=== PATIENT | female | born 1950 | race Caucasian/White ===

== ENCOUNTER 2021-06-16 09:49 | Inpatient (IN) | payer BC, MEDICARE ==
[2021-06-16] MEDS ORDERED: CEFAZOLIN 2 GM in Sodium Chloride 0.9% 100 ML IVPB SCH (11:45)
[2021-06-16 11:47] LABS: #Lymphocytes 0.7 thou/uL (1.20-3.40); #Monocytes 0.4 thou/uL (0.11-0.59); #Neutrophils 2.3 thou/uL (1.40-6.50); %Basophils 0.6 % (0.0-1.0); %Eosinophils 1.1 % (0.0-10.0); %Lymphocytes 20.4 % (21.0-51.0); %Monocytes 12.6 % (0.0-10.0); %Neutrophils 65.3 % (42.0-75.0); Hemoglobin 11.6 g/dL (12.0-16.0); Mean Corpuscular HGB CONC 33.3 g/dL (32.0-36.0); Mean Corpuscular Hemoglobin 33.5 pg (27.0-31.0); Mean Platelet Volume 7.8 fL (7.4-10.4); Platelet Count 83 thou/uL (130-400); RBC Distribution Width 13.6 % (11.5-14.5); Red Blood Cell (RBC) Count 3.46 mill/uL (4.20-5.40); White Blood Cell (WBC) Count 3.5 thou/uL (4.8-10.8)
[2021-06-16 11:48] LABS: ALT (SGPT) 52 U/L (8-55); AST (SGOT) 60 U/L (5-34); Albumin 3.4 g/dL (3.4-4.8); Alkaline Phosphatase 113 U/L (40-110); Anion Gap 16 mmol/L (10-20); BUN (Urea Nitrogen) 18 mg/dL (9.8-20.1); Bilirubin, Total 1.7 mg/dL (0.2-1.2); Calc. Creatinine Clearance 0 mL/min (70-130); Calcium 8.9 mg/dL (7.8-10.44); Carbon Dioxide 25 mmol/L (23-31); Chloride 97 mmol/L (98-107); Glucose 164 mg/dL (83-110); Magnesium 1.9 mg/dL (1.6-2.6); Potassium 3.9 mmol/L (3.5-5.1); Protein, Total 6.4 g/dL (5.8-8.1); Sodium 134 mmol/L (136-145)
[2021-06-16 11:57] LABS: INR-International Normal Ratio 1.7; PTT 36.7 sec (22.9-36.1); Prothrombin Time 20.6 sec (12.0-14.7)
[2021-06-16 12:19] LABS: CKMB 4.2 ng/mL (0-6.6)
[2021-06-16 14:10] LABS: Bilirubin Negative (Negative); Blood, Urine Large (Negative); Glucose, Urine (Dipstick) Negative (Negative); Ketone, Urine Negative (Negative); Leukocyte Negative (Negative); Nitrite Negative (Negative); Protein, Urine (Dipstick) Negative (Neg-Trace); Urobilinogen 0.2 mg/dL (Less than 2)
[2021-06-16 14:20] LABS: Clarity Cloudy (Clear)
[2021-06-16 14:22] LABS: Bacteria/HPF Rare-Few HPF (None Seen)
[2021-06-16] MEDS ORDERED: Dextrose 50% Abboject 50 ML SYRINGE SLOW IVP PRN (16:14)
[2021-06-16] MEDS ORDERED: Dextrose 5% in Water 1,000 ML IV PRN (16:14)
[2021-06-16] MEDS ORDERED: HumaLOG 300 UNITS/3 ML VIAL SC PRN ×2 (16:14)
[2021-06-16] MEDS ORDERED: Ondansetron ODT 4 MG TAB PO PRN (16:16)
[2021-06-16] MEDS ORDERED: Acetaminophen 650 MG Suppository PR PRN (16:16)
[2021-06-16] MEDS ORDERED: Acetaminophen 325 MG TAB PO PRN (16:16)
[2021-06-16] MEDS ORDERED: Ondansetron PF 4 MG/2 ML Vial IVP PRN (16:16)
[2021-06-16 19:41] LABS: Troponin I 0.052 ng/mL (< 0.028)
[2021-06-17] MEDS ORDERED: Methocarbamol 500 MG TAB PO SCH (01:30)
[2021-06-17 08:40] LABS: #Lymphocytes 0.7 thou/uL (1.20-3.40); #Monocytes 0.4 thou/uL (0.11-0.59); #Neutrophils 2.5 thou/uL (1.40-6.50); %Basophils 0.7 % (0.0-1.0); %Eosinophils 1.3 % (0.0-10.0); %Monocytes 11.7 % (0.0-10.0); %Neutrophils 66.4 % (42.0-75.0); Hemoglobin 9.9 g/dL (12.0-16.0); Mean Corpuscular HGB CONC 33.4 g/dL (32.0-36.0); Mean Corpuscular Hemoglobin 33.8 pg (27.0-31.0); Mean Platelet Volume 8.2 fL (7.4-10.4); Platelet Count 61 thou/uL (130-400); RBC Distribution Width 13.5 % (11.5-14.5); Red Blood Cell (RBC) Count 2.93 mill/uL (4.20-5.40); White Blood Cell (WBC) Count 3.7 thou/uL (4.8-10.8)
[2021-06-17 08:49] LABS: Anion Gap 13 mmol/L (10-20); BUN (Urea Nitrogen) 15 mg/dL (9.8-20.1); Calc. Creatinine Clearance 0 mL/min (70-130); Calcium 8.5 mg/dL (7.8-10.44); Carbon Dioxide 27 mmol/L (23-31); Chloride 101 mmol/L (98-107); Glucose 75 mg/dL (83-110); Potassium 3.7 mmol/L (3.5-5.1); Sodium 137 mmol/L (136-145)
[2021-06-17] MEDS ORDERED: Non-Formulary Item 1 EACH (Magnesium [Magnesium] 200 MG Tablet) PO SCH (12:00)
[2021-06-17] MEDS ORDERED: Amiodarone 200 MG TAB PO SCH (12:00)
[2021-06-17] MEDS ORDERED: Apixaban 5 MG TAB PO SCH (12:30)
[2021-06-17] MEDS: Cephalexin 250 MG CAP PO SCH ×3 (15:51→23:21)
[2021-06-17 16:21] LABS: SARS-CoV-2 PCR by NAA Not Detected (NotDetected)
[2021-06-17] MEDS ORDERED: Non-Formulary Item 1 EACH (Melatonin [Melatonin] 5 MG Tablet) PO SCH (21:00)
[2021-06-17] MEDS: Apixaban 5 MG TAB PO SCH (22:16)
[2021-06-17] MEDS: Folic Acid 1 MG TAB PO SCH (22:17)
[2021-06-17] MEDS: Oxybutynin 5 MG TAB PO SCH (22:17)
[2021-06-17] MEDS: Donepezil HCl 5 MG TAB PO SCH (22:17)
[2021-06-17] MEDS: Atorvastatin Calcium 20 MG TAB PO SCH (22:18)
[2021-06-18 04:43] LABS: Thyroid Stimulating Hormone 0.7563 uIU/mL (0.35-4.94)
[2021-06-18 04:59] LABS: Vitamin B12 Greater than 2000 pg/mL (211-911)
[2021-06-18] MEDS: Cephalexin 250 MG CAP PO SCH ×3 (06:46→17:58)
[2021-06-18] MEDS: Oxybutynin 5 MG TAB PO SCH ×2 (10:59→20:55)
[2021-06-18] MEDS: Nebivolol HCl 5 MG TAB PO SCH (11:00)
[2021-06-18] MEDS: Apixaban 5 MG TAB PO SCH ×2 (11:00→20:55)
[2021-06-18] MEDS: Cyanocobalamin (Vitamin B-12) 1,000 MCG TAB PO SCH (11:01)
[2021-06-18] MEDS: Amiodarone 200 MG TAB PO SCH (11:01)
[2021-06-18] MEDS: Donepezil HCl 5 MG TAB PO SCH (11:01)
[2021-06-18] MEDS: Thiamine 100 MG TAB PO SCH (11:01)
[2021-06-18] MEDS: Folic Acid 1 MG TAB PO SCH ×2 (11:01→20:55)
[2021-06-18] MEDS: Cholecalciferol 1,000 UNITS (25 MCG) TAB PO SCH (11:01)
[2021-06-18] MEDS: Alogliptin 25 MG TAB PO SCH (12:02)
[2021-06-18] MEDS: traMADol HCl 50 MG TAB PO PRN (19:07)
[2021-06-18] MEDS: Atorvastatin Calcium 20 MG TAB PO SCH (20:55)
[2021-06-19] MEDS: Cephalexin 250 MG CAP PO SCH ×4 (00:01→17:39)
[2021-06-19] MEDS: Amiodarone 200 MG TAB PO SCH (11:11)
[2021-06-19] MEDS: Folic Acid 1 MG TAB PO SCH ×2 (11:11→20:31)
[2021-06-19] MEDS: Cyanocobalamin (Vitamin B-12) 1,000 MCG TAB PO SCH (11:11)
[2021-06-19] MEDS: Apixaban 5 MG TAB PO SCH ×2 (11:11→20:31)
[2021-06-19] MEDS: Nebivolol HCl 5 MG TAB PO SCH (11:11)
[2021-06-19] MEDS: Oxybutynin 5 MG TAB PO SCH ×2 (11:12→20:31)
[2021-06-19] MEDS: Thiamine 100 MG TAB PO SCH (11:12)
[2021-06-19] MEDS: Cholecalciferol 1,000 UNITS (25 MCG) TAB PO SCH (11:12)
[2021-06-19] MEDS: Alogliptin 25 MG TAB PO SCH (11:12)
[2021-06-19] MEDS: Atorvastatin Calcium 20 MG TAB PO SCH (20:31)
[2021-06-19] MEDS: Donepezil HCl 5 MG TAB PO SCH (20:31)
[2021-06-19] MEDS: Senokot S 8.6-50 MG TAB PO PRN (20:32)
[2021-06-20] MEDS: Cephalexin 250 MG CAP PO SCH ×5 (00:24→23:10)
[2021-06-20] MEDS: Cholecalciferol 1,000 UNITS (25 MCG) TAB PO SCH (09:25)
[2021-06-20] MEDS: Folic Acid 1 MG TAB PO SCH ×2 (09:25→21:22)
[2021-06-20] MEDS: Cyanocobalamin (Vitamin B-12) 1,000 MCG TAB PO SCH (09:25)
[2021-06-20] MEDS: Nebivolol HCl 5 MG TAB PO SCH (09:25)
[2021-06-20] MEDS: Thiamine 100 MG TAB PO SCH (09:25)
[2021-06-20] MEDS: Amiodarone 200 MG TAB PO SCH (09:25)
[2021-06-20] MEDS: Alogliptin 25 MG TAB PO SCH (09:25)
[2021-06-20] MEDS: Apixaban 5 MG TAB PO SCH ×2 (09:28→21:22)
[2021-06-20] MEDS ORDERED: Polyethylene Glycol 3350 17 GM Packet PO SCH (14:45)
[2021-06-20] MEDS: Oxybutynin 5 MG TAB PO SCH ×2 (14:57→21:22)
[2021-06-20] MEDS: Atorvastatin Calcium 20 MG TAB PO SCH (21:21)
[2021-06-20] MEDS: Donepezil HCl 5 MG TAB PO SCH (21:22)
[2021-06-20] MEDS: Senokot S 8.6-50 MG TAB PO PRN (21:45)
[2021-06-21] MEDS: Cephalexin 250 MG CAP PO SCH ×4 (05:38→23:48)
[2021-06-21] MEDS ORDERED: Bisacodyl 5 MG TAB PO PRN (08:19)
[2021-06-21] MEDS ORDERED: Fleet Enema 133 ML BOT PR SCH (08:30)
[2021-06-21] MEDS: Alogliptin 25 MG TAB PO SCH (09:15)
[2021-06-21] MEDS: Apixaban 5 MG TAB PO SCH ×2 (09:16→20:50)
[2021-06-21] MEDS: Nebivolol HCl 5 MG TAB PO SCH (09:16)
[2021-06-21] MEDS: Amiodarone 200 MG TAB PO SCH (09:16)
[2021-06-21] MEDS: Thiamine 100 MG TAB PO SCH (09:16)
[2021-06-21] MEDS: Oxybutynin 5 MG TAB PO SCH ×2 (09:16→20:51)
[2021-06-21] MEDS: Cholecalciferol 1,000 UNITS (25 MCG) TAB PO SCH (09:16)
[2021-06-21] MEDS: Folic Acid 1 MG TAB PO SCH ×2 (09:16→20:50)
[2021-06-21] MEDS: Cyanocobalamin (Vitamin B-12) 1,000 MCG TAB PO SCH (09:17)
[2021-06-21] MEDS: traMADol HCl 50 MG TAB PO PRN (15:30)
[2021-06-21] MEDS: Atorvastatin Calcium 20 MG TAB PO SCH (20:51)
[2021-06-21] MEDS: Donepezil HCl 5 MG TAB PO SCH (20:51)
[2021-06-22] MEDS: Cephalexin 250 MG CAP PO SCH ×4 (05:29→23:03)
[2021-06-22 06:49] LABS: Bilirubin Negative (Negative); Blood, Urine Negative (Negative); Calcium Oxalate Crystals 4+ HPF (None Seen); Clarity Turbid (Clear); Glucose, Urine (Dipstick) Normal (Negative); Ketone, Urine Negative (Negative); Leukocyte 25 Leu/uL (Negative); Nitrite Negative (Negative); Protein, Urine (Dipstick) Negative (Neg-Trace); RBC/HPF 0-3 HPF (0-3); Specific Gravity, Urine 1.023 (1.002-1.036); Urobilinogen 3 mg/dL (Less than 2); Yeast-Budding 1+ HPF (None Seen); pH, Urine 5.5 (5.0-9.0)
[2021-06-22 06:52] LABS: Bacteria/HPF 1+ HPF (None Seen)
[2021-06-22 07:15] LABS: Urine Culture Reflex No No
[2021-06-22 09:38] VITALS: BMI 39.9
[2021-06-22] MEDS: Folic Acid 1 MG TAB PO SCH ×2 (09:51→20:20)
[2021-06-22] MEDS: Alogliptin 25 MG TAB PO SCH (09:51)
[2021-06-22] MEDS: Cholecalciferol 1,000 UNITS (25 MCG) TAB PO SCH (09:51)
[2021-06-22] MEDS: Oxybutynin 5 MG TAB PO SCH ×2 (09:51→20:20)
[2021-06-22] MEDS: Apixaban 5 MG TAB PO SCH ×2 (09:51→20:20)
[2021-06-22] MEDS: Cyanocobalamin (Vitamin B-12) 1,000 MCG TAB PO SCH (09:52)
[2021-06-22] MEDS: Amiodarone 200 MG TAB PO SCH (09:52)
[2021-06-22] MEDS: Nebivolol HCl 5 MG TAB PO SCH (09:52)
[2021-06-22] MEDS: Thiamine 100 MG TAB PO SCH (09:52)
[2021-06-22 16:24] LABS: #Eosinphils 0.1 thou/uL (0.0-0.7); #Monocytes 0.8 thou/uL (0.11-0.59); #Neutrophils 4.3 thou/uL (1.40-6.50); %Basophils 0.6 % (0.0-1.0); %Eosinophils 0.8 % (0.0-10.0); %Lymphocytes 16.1 % (21.0-51.0); %Monocytes 12.8 % (0.0-10.0); %Neutrophils 69.6 % (42.0-75.0); Hemoglobin 11.1 g/dL (12.0-16.0); Mean Corpuscular HGB CONC 33.7 g/dL (32.0-36.0); Mean Platelet Volume 8.5 fL (7.4-10.4); Platelet Count 91 thou/uL (130-400); RBC Distribution Width 14.4 % (11.5-14.5); Red Blood Cell (RBC) Count 3.26 mill/uL (4.20-5.40); White Blood Cell (WBC) Count 6.1 thou/uL (4.8-10.8)
[2021-06-22 16:52] LABS: ALT (SGPT) 55 U/L (8-55); AST (SGOT) 72 U/L (5-34); Albumin 2.6 g/dL (3.4-4.8); Alkaline Phosphatase 100 U/L (40-110); Anion Gap 15 mmol/L (10-20); BUN (Urea Nitrogen) 18 mg/dL (9.8-20.1); Bilirubin, Total 1.8 mg/dL (0.2-1.2); Calc. Creatinine Clearance 90 mL/min (70-130); Calcium 8.3 mg/dL (7.8-10.44); Carbon Dioxide 24 mmol/L (23-31); Chloride 97 mmol/L (98-107); Globulin 2.3 g/dL (2.4-3.5); Glucose 182 mg/dL (83-110); Potassium 3.5 mmol/L (3.5-5.1); Protein, Total 4.9 g/dL (5.8-8.1); Sodium 132 mmol/L (136-145)
[2021-06-22] MEDS: Atorvastatin Calcium 20 MG TAB PO SCH (20:20)
[2021-06-22] MEDS: Donepezil HCl 5 MG TAB PO SCH (20:20)
[2021-06-22] MEDS: Senokot S 8.6-50 MG TAB PO PRN (20:41)
[2021-06-23] MEDS: Cephalexin 250 MG CAP PO SCH ×2 (05:27→12:47)
[2021-06-23 05:48] LABS: #Lymphocytes 1.2 thou/uL (1.20-3.40); #Monocytes 0.8 thou/uL (0.11-0.59); #Neutrophils 3.9 thou/uL (1.40-6.50); %Basophils 0.4 % (0.0-1.0); %Eosinophils 0.4 % (0.0-10.0); %Lymphocytes 20.1 % (21.0-51.0); %Monocytes 13.2 % (0.0-10.0); %Neutrophils 65.9 % (42.0-75.0); Hemoglobin 10.5 g/dL (12.0-16.0); Mean Corpuscular HGB CONC 34.7 g/dL (32.0-36.0); Mean Corpuscular Hemoglobin 34.5 pg (27.0-31.0); Mean Corpuscular Volume 99.3 fL (78.0-98.0); Mean Platelet Volume 8.3 fL (7.4-10.4); Platelet Count 86 thou/uL (130-400); RBC Distribution Width 14.3 % (11.5-14.5); Red Blood Cell (RBC) Count 3.05 mill/uL (4.20-5.40); White Blood Cell (WBC) Count 5.9 thou/uL (4.8-10.8)
[2021-06-23 06:12] LABS: ALT (SGPT) 52 U/L (8-55); AST (SGOT) 65 U/L (5-34); Albumin 2.5 g/dL (3.4-4.8); Alkaline Phosphatase 80 U/L (40-110); Anion Gap 13 mmol/L (10-20); BUN (Urea Nitrogen) 17 mg/dL (9.8-20.1); Bilirubin, Total 1.9 mg/dL (0.2-1.2); Calc. Creatinine Clearance 100 mL/min (70-130); Calcium 8.1 mg/dL (7.8-10.44); Carbon Dioxide 27 mmol/L (23-31); Chloride 96 mmol/L (98-107); Globulin 2.2 g/dL (2.4-3.5); Glucose 119 mg/dL (83-110); Potassium 3.5 mmol/L (3.5-5.1); Protein, Total 4.7 g/dL (5.8-8.1); Sodium 132 mmol/L (136-145)
[2021-06-23] MEDS: Apixaban 5 MG TAB PO SCH (08:25)
[2021-06-23] MEDS: Alogliptin 25 MG TAB PO SCH (08:25)
[2021-06-23] MEDS: Nebivolol HCl 5 MG TAB PO SCH (08:26)
[2021-06-23] MEDS: Amiodarone 200 MG TAB PO SCH (08:26)
[2021-06-23] MEDS: Cyanocobalamin (Vitamin B-12) 1,000 MCG TAB PO SCH (08:28)
[2021-06-23] MEDS: Folic Acid 1 MG TAB PO SCH (08:28)
[2021-06-23] MEDS: Cholecalciferol 1,000 UNITS (25 MCG) TAB PO SCH (08:28)
[2021-06-23] MEDS: traMADol HCl 50 MG TAB PO PRN (08:28)
[2021-06-23] MEDS: Oxybutynin 5 MG TAB PO SCH (08:28)
[2021-06-23] MEDS: Thiamine 100 MG TAB PO SCH (08:29)
[2021-06-23 08:40] VITALS: BP 124/56; TEMP 97.1
== END 2021-06-23 15:45 | DRG 603 ==
LOC: ERS 09:49 → OBSVTOIN 16:05 → ONC 16:05
PROVIDERS: ADMIT Internal Medicine; ATTEND Internal Medicine
DX: L03.116 Cellulitis of left lower limb (principal); I48.20 Chronic atrial fibrillation, unspecified; I69.354 Hemiplegia and hemiparesis following cerebral infarction affecting left non-dominant side; K56.7 Ileus, unspecified; I11.0 Hypertensive heart disease with heart failure; E78.5 Hyperlipidemia, unspecified; E11.42 Type 2 diabetes mellitus with diabetic polyneuropathy; F32.A Depression, unspecified; D53.9 Nutritional anemia, unspecified; D69.6 Thrombocytopenia, unspecified; K21.9 Gastro-esophageal reflux disease without esophagitis; F03.90 Unspecified dementia, unspecified severity, without behavioral disturbance, psychotic disturbance, mood disturbance, and anxiety; K59.00 Constipation, unspecified; R45.1 Restlessness and agitation; Z79.01 Long term (current) use of anticoagulants; Z90.710 Acquired absence of both cervix and uterus; Z98.890 Other specified postprocedural states; Z74.01 Bed confinement status
CPT/HCPCS: 36415; 36416; 71045; 74018; 80048; 80053; 81001; 81003; 81015; 82553; 82607; 82746; 83735; 83880; 84443; 84484; 85025; 85610; 85730; 87040; 87086; 93005; 96365; J0690; J3490; Q0162; U0003; U0005